=== PATIENT | female | born 1995 | race Caucasian/White ===

== ENCOUNTER 2018-01-09 15:39 | Emergency (ER) | payer SELFPAY ==
[2018-01-09 16:21] VITALS: BP 121/86; PULSE 77; TEMP 98.1; BMI 19.8
--- NOTE | 2018-01-09 16:48 | PDOC ---
History of Present Illness - General Chief Complaint: Back Pain Stated Complaint: LOWER BACK PAIN, FALL Time Seen by Provider: 01/09/18 16:20 History Source: Patient Exam Limitations: No Limitations - History of Present Illness Initial Comments: CHIEF COMPLAINT: 22 y/o afebrile female with no significant PMH c/o tailbone pain after fall last night. HISTORY OF PRESENT ILLNESS: The patient states she was trying to sit on a high bar stool last night and when she went to sit the stool had been moved and she fell straight downwards onto her tailbone. She states it felt like a shock went through her body and now it's very very painful to sit down. SHe took a friend's "strong tylenol" and feels a bit better. She denies head trauma, LOC, neck pain, n/v/d, dizziness, numbness/tingling, saddle anesthesia. Past History - Past Medical History Allergies/Adverse Reactions: Allergies Allergy/AdvReac Type Severity Reaction Status Date / Time No Known Allergies Allergy Verified 01/09/18 16:18 Home Medications: Ambulatory Orders Ibuprofen 800 mg PO TID #20 tablet 01/09/18 COPD: No - Suicide/Smoking/Psychosocial Hx Smoking History: Never smoked Have you smoked in the past 12 months: No Information on smoking cessation initiated: No Hx Alcohol Use: No Drug/Substance Use Hx: No Review of Systems - Review of Systems Able to Perform ROS?: Yes Constitutional: No: Chills, Fever HEENTM: No: Symptoms Reported Respiratory: No: Symptoms reported Cardiac (ROS): No: Symptoms Reported ABD/GI: No: Symptoms Reported : No: Symptoms Reported Musculoskeletal: Yes: Back Pain. No: Muscle Pain, Neck Pain Integumentary: No: Symptoms Reported Neurological: No: Symptoms reported *Physical Exam - Vital Signs Last Vital Signs Temp Pulse Resp BP Pulse Ox 98.1 F 77 20 121/86 100 01/09/18 16:18 01/09/18 16:18 01/09/18 16:18 01/09/18 16:18 01/09/18 16:18 - Physical Exam Comments: Thin ambulatory female in NAD but in obvious discomfort with slow gait General Appearance: Yes: Nourished, Appropriately Dressed. No: Apparent Distress Musculoskeletal: positive: Decreased Range of Motion (pain with sitting and movement), Vertebral Tenderness (of very distal sacral spine. no crepitus or step offs.). 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 negative: Numbness, Sensory Deficit Medical Decision Making - Medical Decision Making A/P: 22 y/o female with sacral bone injury. Plan is as follows: 1. hcg 2. sacrum xray hcg - negative sacrum xray IMPRESSION: No acute fracture Gave patient the results. Will send rx for 800mg of ibuprofen and instructed to take with food. Suggested she buy a donut to sit on at a local pharmacy and return to the ER with any worsening or concerning symptoms The patient verbalizes understanding of all instructions, has no further questions and is awaiting discharge. *DC/Admit/Observation/Transfer Diagnosis at time of Disposition: Sacral contusion Qualifiers: Encounter type: initial encounter Qualified Code(s): S30.0XXA - Contusion of lower back and pelvis, initial encounter - Discharge Dispostion Disposition: HOME Condition at time of disposition: Good - Referrals - Patient Instructions Printed Discharge Instructions: Coccydynia Additional Instructions: Discharge Instructions: -Your xray was normal -A prescription for pain medication was sent to your pharmacy; please take with food -use a "donut" to help with sitting; can purchase from a local pharmacy -Apply ice to affected area -Return to the ER with any worsening or concerning symptoms - Post Discharge Activity Forms/Work/School Notes: Back to Work
[2018-01-09] MEDS ORDERED: KETOROLAC TROMETHAMINE 60 MG/2 ML VIAL IM ONE (18:20)
[2018-01-09] MEDS ORDERED: KETOROLAC TROMETHAMINE 60 MG/2 ML VIAL ONE (18:24)
== END 2018-01-09 18:57 | disposition home or self-care (01) ==
LOC: JERFT 15:39
DX: S30.0XXA Contusion of lower back and pelvis, initial encounter (principal); W07.XXXA Fall from chair, initial encounter; Y93.89 Activity, other specified; Y92.89 Other specified places as the place of occurrence of the external cause; Y99.8 Other external cause status
CPT/HCPCS: 72220-TC-FY; 84703; 99281-25